=== PATIENT | female | born 1990 | race African-American/Black ===

== ENCOUNTER 2021-03-12 23:20 | Emergency (ER) | payer OTHER ==
[~2021-03-12] VITALS: Ht 160 cm; Wt 63.0 kg
[~2021-03-12 23:20] MED LIST: NAPROSYN500 MG PO
[2021-03-13 00:23] LABS: BASOPHILS 0.5 % (0.0-2.0); EOSINOPHILS 1.6 % (0.0-3.0); HEMATOCRIT 35.4 % (37.0-47.0); HEMOGLOBIN 11.8 gm/dL (12.0-15.0); LYMPHOCYTES 42.8 % (24.0-44.0); MCH 28.4 pg (26.0-34.0); MCHC 33.2 g/dL (28.0-37.0); MCV 85.5 fL (80.0-100.0); PLATELET COUNT 277 thou/uL (150-400); POLYS 45.1 % (36.0-66.0); RBC 4.14 mil/uL (4.20-5.00); RDW 12.4 % (10.5-14.5); WBC 6.6 thou/uL (4.0-11.0)
[2021-03-13 00:42] LABS: ANION GAP 12 mmol/L (7-16); BUN 9 mg/dL (7-18); CALCIUM 8.5 mg/dL (8.5-10.1); CHLORIDE 102 mmol/L (98-107); CO2 25 mmol/L (21-32); CREATININE 0.9 mg/dL (0.6-1.0); GLUCOSE 134 mg/dL (74-106); POTASSIUM 3.4 mmol/L (3.5-5.1); SODIUM 139 mmol/L (136-145)
[2021-03-13 00:52] LABS: ALBUMIN 3.6 g/dL (3.4-5.0); SGOT 21 U/L (15-37); SGPT 29 U/L (30-65); TOTAL BILIRUBIN 0.3 mg/dL (0.2-1.0); TOTAL PROTEIN 7.2 g/dL (6.4-8.2); TROPONIN-I <0.06 ng/mL (<0.06)
[2021-03-13 02:08] VITALS: BP 102/57
--- NOTE | 2021-03-13 07:21 | EKG ---
[place] [address] [facility] [address] ELECTROCARDIOGRAM REPORT Name: NNEKA MILLIGAN Room #: DEP [facility]#: [id number] Admission: 03/12/21 Attend Phys: Discharge: 03/13/21 Date of : 86 Report #: [id number] [facility] ED Test Date: 2021-03-12 Test Time: 23:24:36 Pat Name: NNEKA MILLIGAN Department: Room: Gender: F Mining Support Worker: JORDANACHIKIS : 1990 Requested By: Omar Farah Order Number: [id number] MD: Pedro Mar Measurements Intervals [place] Rate: 103 P: 40 AK: 158 QRS: 59 QRSD: 74 T: -49 QT: 344 QTc: 451 Interpretive Statements Sinus tachycardia Probable left atrial enlargement Borderline repolarization abnormality No previous ECG available for comparison Electronically Signed On 03-13-2021 7:21:39 CDT by Pedro Mar [email or web address] <ELECTRONICALLY SIGNED> By: Pedro Mar MD, [facility] 03/13/21 0721 [id number] Pedro Mar MD, FACC /EPI
== END 2021-03-13 02:10 | disposition home or self-care (01) ==
LOC: ER 23:20
PROVIDERS: Emergency Medicine
DX: R07.89 Other chest pain (principal); F41.9 Anxiety disorder, unspecified; I11.0 Hypertensive heart disease with heart failure; I50.9 Heart failure, unspecified; Z79.1 Long term (current) use of non-steroidal anti-inflammatories (NSAID); F12.90 Cannabis use, unspecified, uncomplicated

== ENCOUNTER 2021-07-06 00:29 | Emergency (ER) | payer OTHER ==
[~2021-07-06] VITALS: Ht 167.6 cm; Wt 63.5 kg
[2021-07-06] MEDS ORDERED: CARVEDILOL12.5 MG PO (00:44)
[2021-07-06] MEDS ORDERED: ENTRESTO 24 MG1 EACH PO (00:44)
[2021-07-06] MEDS ORDERED: SPIRONOLACTONE25 MG PO (00:44)
[2021-07-06] MEDS ORDERED: BUSPIRONE HCL5 MG PO (00:45)
[2021-07-06 02:27] LABS: CALCIUM 8.5 mg/dL (8.5-10.1); CREATININE 0.8 mg/dL (0.6-1.0); POTASSIUM 3.7 mmol/L (3.5-5.1)
[2021-07-06 02:37] LABS: ALBUMIN 3.4 g/dL (3.4-5.0); TOTAL BILIRUBIN 0.3 mg/dL (0.2-1.0); TOTAL PROTEIN 6.9 g/dL (6.4-8.2)
[2021-07-06 02:40] LABS: ABSOLUTE NEUTROPHILS 3.2 thou/uL (1.4-8.2); BASOPHILS 0.7 % (0.0-2.0); EOSINOPHILS 1.7 % (0.0-3.0); HEMATOCRIT 34.7 % (37.0-47.0); HEMOGLOBIN 11.6 gm/dL (12.0-15.0); LYMPHOCYTES 30.4 % (24.0-44.0); MCH 28.7 pg (26.0-34.0); MCHC 33.4 g/dL (28.0-37.0); MONOCYTES 8.8 % (1.0-8.0); PLATELET COUNT 266 thou/uL (150-400); POLYS 58.4 % (36.0-66.0); RBC 4.04 mil/uL (4.20-5.00); RDW 12.7 % (10.5-14.5); WBC 5.5 thou/uL (4.0-11.0)
[2021-07-06 04:59] VITALS: BP 116/68
--- NOTE | 2021-07-06 07:52 | EKG ---
[address] [place] [address] ELECTROCARDIOGRAM REPORT Name: NNEKA MILLIGAN SANDI Room #: DEP [facility]#: [id number] Admission: 07/06/21 Attend Phys: Discharge: 07/06/21 Date of : 86 Report #: [id number] [facility] ED Test Date: 2021-07-06 Test Time: 03:14:54 Pat Name: NNEKA MILLIGAN Department: Room: Gender: F Staff Development Manager: iraida : 1990 Requested By: Omar Farah Order Number: [id number] MD: Steve Donato Measurements Intervals [place] Rate: 79 P: 56 [place]: 157 QRS: 56 QRSD: 84 T: 29 QT: 392 QTc: 450 Interpretive Statements Sinus arrhythmia Normal tracing Compared to ECG 03/12/2021 23:24:36 Sinus tachycardia no longer present ST and T wave abnormality is no longer present Electronically Signed On 07-06-2021 7:52:20 INTERNATIONAL NURSE by Steve Donato [email or web address] <ELECTRONICALLY SIGNED> By: Steve Donato MD, [facility] 07/06/21 [id number] Steve Donato MD, FACC /EPI
== END 2021-07-06 05:00 | disposition home or self-care (01) ==
LOC: ER 00:29
PROVIDERS: Emergency Medicine
DX: R06.02 Shortness of breath (principal); Z20.822 Contact with and (suspected) exposure to COVID-19; I11.0 Hypertensive heart disease with heart failure; I50.9 Heart failure, unspecified; Z88.8 Allergy status to other drugs, medicaments and biological substances; Z79.899 Other long term (current) drug therapy